=== PATIENT | female | born 1990 | race Caucasian/White ===

== ENCOUNTER 2016-04-27 14:26 | Inpatient (IN) | payer MEDICAID ==
[2016-04-27] MEDS ORDERED: ZOFRAN IV PRN ×2 (15:50→18:05)
[2016-04-27] MEDS ORDERED: MINERAL OIL PO PRN (15:50)
[2016-04-27] MEDS ORDERED: NARCAN 0.4 MG/1 ML IV PRN (15:50)
[2016-04-27] MEDS ORDERED: BRETHINE IVP PRN (15:50)
[2016-04-27] MEDS ORDERED: ePHEDrine SULFATE IV PRN (15:50)
[2016-04-27] MEDS ORDERED: BRETHINE SUB-Q PRN (15:50)
[2016-04-27] MEDS ORDERED: STADOL IV PRN (15:50)
[2016-04-27] MEDS ORDERED: PHENERGAN PO PRN ×2 (15:50→18:05)
--- NOTE | 2016-04-27 15:56 | History and Physical Report ---
History of Present Illness Date of examination: 04/27/16 Chief complaint: Labor History of present illness: Pt is a 25yo BF EDC 04/30/16; EGA 39 4/7 weeks presents to L&D complaining of RUC's q 3-4 mins. She denies ROM or bleeding. She received care at [facility] since 18 weeks and course has been unremarkable. records are available and GBS is Negative. Past History Past Medical History: no pertinent history Past Surgical History: no surgical history Family/Genetic History: none Social history: no significant social history, single - Obstetrical History Expected Date of Delivery: 04/30/16 Actual Gestation: 39 Week(s) 4 Day(s) : 2 Medications and Allergies Allergies Allergy/AdvReac Type Severity Reaction Status Date / Time No Known Allergies Allergy Unverified 02/24/14 19:40 Home Medications Medication Instructions Recorded Confirmed Last Taken Type Pnv with Ca,No.72/Iron/FA [Preplus 1 tab PO DAILY 02/25/14 02/25/14 02/23/14 History Ca-Fe 27 mg-FA 1 mg Tb] 1 Review of Systems All systems: negative - Vital Signs Vital signs: Vital Signs Pulse Pulse Ox 108 H 97 04/27/16 14:33 04/27/16 14:33 Temp Pulse Resp BP Pulse Ox 89 106/62 99 04/27/16 15:37 04/27/16 14:53 04/27/16 15:37 - Physical Exam Breasts: Positive: deferred Cardiovascular: Regular rate Lungs: Positive: Clear to auscultation Abdomen: Positive: normal appearance Genitourinary (Female): Positive: normal external genitalia Uterus: Positive: enlarged Extremities: Positive: normal - Obstetrical FHR: category 1 Uterine Contraction Monitor Mode: External Cervical Dilatation: 5 Cervical Effacement Percentage: 80 station: -2 Uterine Contraction Pattern: Regular Uterine Tone Measurement Phase: Contraction Uterine Contraction Intensity: Moderate Results Result Diagrams: 04/27/16 16:00 All other labs normal. Assessment and Plan - Patient Problems (1) Active labor at term Onset Date: 04/27/16 Current Visit: No Status: Acute Plan to address problem: A: IUP @ 39 4/7 weeks in labor P: Admit to L&D for expectant vaginal delivery
[2016-04-27] MEDS ORDERED: PITOCin/NS 20 UNIT/1000ML DRIP 20 UNIT/1,000 ML BAG IV SCH (16:00)
[2016-04-27] MEDS ORDERED: LACTATED RINGERS 1,000 ML IV SCH (16:00)
[2016-04-27] MEDS ORDERED: PITOCin/NS 30 UNIT/500ML 30 UNIT/500 ML BAG IV SCH ×2 (16:00)
[2016-04-27] MEDS: SUBLIMAZE IV PRN ×2 (16:22→16:24)
[2016-04-27 16:48] LABS: Hematocrit 34.5 % (30.3-42.9); Hemoglobin 11.3 gm/dl (10.1-14.3); Mean Corpuscular HGB Conc 33 % (30-34); Mean Corpuscular Hemoglobin 27 pg (28-32); Mean Corpuscular Volume 81 fl (79-97); Platelet Count 164 K/mm3 (140-440); Red Blood Count 4.25 M/mm3 (3.65-5.03); Red Cell Distribution Width 14.1 % (13.2-15.2); White Blood Count 11.3 K/mm3 (4.5-11.0)
[2016-04-27] MEDS ORDERED: XYLOCAINE 2% INFILTRATI ONE (17:24)
--- NOTE | 2016-04-27 17:42 | Procedure Note ---
OB Delivery Note - Delivery Date of Delivery: 04/27/16 Surgeon: DESIREE JURADO Estimated blood loss: 300cc - Vaginal Delivery presentation: vertex Delivery position: OP Intrapartum events: precipitous labor- <3hr Delivery induction: none Delivery augmentation: rupture of membranes Delivery monitor: external FHT, external uterine Route of delivery: Delivery placenta: spontaneous Delivery cord: 3 umbilical vessels Episiotomy: none Delivery laceration: 2nd degree (perineal) Delivery repair: vicryl - A at 1 minute: 8 at 5 minutes: 9 Gender: Female (3255gms)
[2016-04-27] MEDS ORDERED: LANSINOH TP PRN (18:05)
[2016-04-27] MEDS ORDERED: NORCO 5/325 PO PRN (18:05)
[2016-04-27] MEDS ORDERED: DERMOPLAST TP PRN (18:05)
[2016-04-27] MEDS ORDERED: MILK OF MAGNESIA PO PRN (18:05)
[2016-04-27] MEDS ORDERED: PHENERGAN PR PRN (18:05)
[2016-04-27] MEDS ORDERED: DULCOLAX PR PRN (18:05)
[2016-04-27] MEDS ORDERED: TYLENOL PO PRN (18:05)
[2016-04-27] MEDS ORDERED: BENADRYL PO PRN (18:05)
[2016-04-27] MEDS ORDERED: TUCKS PAD TP PRN (18:05)
[2016-04-27] MEDS ORDERED: PITOCin/NS 20 UNIT/1000ML DRIP 20 UNITS/1,000 ML BAG IV SCH (19:00)
[2016-04-27] MEDS ORDERED: SODIUM CHLORIDE FLUSH SYRINGE 10 ML IV NR (19:00)
[2016-04-27] MEDS: FEOSOL PO SCH (21:04)
[2016-04-27] MEDS: MOTRIN PO SCH (21:04)
[2016-04-27] MEDS: COLACE PO SCH (21:05)
[2016-04-28 05:34] LABS: Hematocrit 27.6 % (30.3-42.9); Hemoglobin 9.4 gm/dl (10.1-14.3)
[2016-04-28] MEDS ORDERED: BOOSTRIX IM ONE (06:00)
[2016-04-28] MEDS ORDERED: M-M-R II VACCINE SUB-Q ONE (06:00)
[2016-04-28] MEDS: MOTRIN PO SCH ×3 (06:36→18:46)
[2016-04-28] MEDS ORDERED: PRENATAL VITAMIN PO SCH (10:00)
[2016-04-28] MEDS: COLACE PO SCH ×2 (10:05→21:47)
[2016-04-28] MEDS: FEOSOL PO SCH ×2 (10:05→21:47)
--- NOTE | 2016-04-28 11:25 | Progress Note ---
Assessment and Plan - Patient Problems (1) Active labor at term Onset Date: 04/27/16 Current Visit: No Status: Resolved (2) Normal spontaneous vaginal delivery Onset Date: 04/28/16 Current Visit: No Status: Resolved Plan to address problem: A: S/P - PPD #1 Doing well Asymptomatic anemia P: May go home tomorrow Subjective - Subjective Date of service: 04/28/16 Principal diagnosis: s/p - PPD #1 Interval history: Pt is feeling well without complaints. Bleeding improved. Patient reports: appetite normal, voiding normally, pain well controlled, flatus , ambulating normally, no dizzy ambulation, no nauseated : doing well, nursing well Objective - Vital Signs Latest vital signs: Vital Signs Temp Pulse Pulse Resp BP BP Pulse Ox 04/28/16 04:20 98 F 76 18 120/65 04/28/16 00:40 98.6 F 70 16 116/60 04/27/16 22:07 98.6 F 86 20 107/55 04/27/16 17:39 79 109/64 04/27/16 16:19 98.9 F 18 04/27/16 15:37 89 99 04/27/16 15:35 34 L 84 04/27/16 14:53 69 106/62 04/27/16 14:33 108 H 97 Intake and Output 04/27/16 04/28/16 04/28/16 22:59 06:59 14:59 Intake Total 125 Output Total 1250 800 Balance -1125 -800 Intake: IV 125 PITOCin/NS 20 UNIT/1000ML 125 DRIP 20 unit In 1,000 ml @ 125 mls/hr IV DIRECT TERRY Rx#:[id number] Output: Urine 1250 800 Void 1250 800 Other: Total, Output Amount 700 400 # Voids Void 1 1 Weight 80.739 kg Estimated Blood Loss 300 - Exam Breasts: Present: deferred Cardiovascular: Present: Regular rate Lungs: Present: Clear to auscultation Abdomen: Present: normal appearance, soft Uterus: Present: normal, firm, fundal height below umbilicus Extremities: Present: normal - Labs Labs: Abnormal lab results 04/27/16 04/28/16 Range/Units 16:00 05:19 WBC 11.3 H (4.5-11.0) K/mm3 Hgb 9.4 L (10.1-14.3) gm/dl Hct 27.6 L D (30.3-42.9) % MCH 27 L (28-32) pg Laboratory Tests 04/27/16 04/27/16 04/28/16 16:00 16:00 05:19 WBC 11.3 H RBC 4.25 Hgb 11.3 9.4 L Hct 34.5 27.6 L D MCV 81 MCH 27 L MCHC 33 RDW 14.1 Plt Count 164 Blood Type O POSITIVE Antibody Screen Negative
--- NOTE | 2016-04-28 14:22 | Discharge Summary ---
Providers - Providers Date of Admission: 04/27/16 15:50 Date of discharge: 04/29/16 Attending physician: DESIREE JURADO Primary care physician: DESIREE JURADO Hospitalization Reason for admission: active labor, IUP at term Delivery: Episiotomy: none Laceration: 2nd degree Other procedures: none complications: none Discharge diagnosis: IUP at term delivered [place] baby: female Hospital course: Unremarkable. Condition at discharge: Good Disposition: DISCHARGED TO HOME OR SELFCARE - Discharge Diagnoses (1) Active labor at term Status: Resolved (2) Normal spontaneous vaginal delivery Status: Resolved Plan - Discharge Medications Prescriptions: HYDROcodone/APAP 5-325 [[place] 5/325] 1 each PO Q6HR PRN #20 tablet PRN Reason: Pain Ibuprofen [Motrin] 800 mg PO Q8HR PRN #30 tablet PRN Reason: Moder Pain Unrelieved By [place] Pnv with Ca,No.72/Iron,Carb/FA [ Plus Iron Tablet] 1 each PO DAILY #30 tablet - Provider Discharge Summary Activity: routine, no sex for 6 weeks, no heavy lifting 4 weeks, no strenuous exercise Diet: routine Instructions: routine Additional instructions: [] Smoking cessation referral if applicable(refer to patient education folder for contact #) [] Refer to [facility] Booklet Call your doctor immediately for: * Fever > 100.5 * Heavy vaginal bleeding ( >1 pad per hour) * Severe persistent headache * Shortness of breath * Reddened, hot, painful area to leg or breast * Drainage or odor from incision. * Keep incision clean and dry at all times and follow doctor's instructions regarding bathing/showering - Follow up plan Follow up: DESIREE JURADO MD [Primary Care Provider] - 6 Weeks
[2016-04-29] MEDS: MOTRIN PO SCH ×2 (05:23)
[2016-04-29 10:54] VITALS: BP 107/54
== END 2016-04-29 10:49 | disposition home or self-care (01) | DRG 775 ==
LOC: TRG 14:26 → LD 15:50 → OB 19:50
PROVIDERS: ADMIT Obstetrics & Gynecology; ATTEND Obstetrics & Gynecology
PROC: 10E0XZZ Delivery of Products of Conception, External Approach (ICD-10-PCS; principal; 2016-04-27)
PROC: 0KQM0ZZ Repair Perineum Muscle, Open Approach (ICD-10-PCS; 2016-04-27)
PROC: 3E0234Z Introduction of Serum, Toxoid and Vaccine into Muscle, Percutaneous Approach (ICD-10-PCS; 2016-04-28)
DX: O62.3 Precipitate labor (principal); O70.1 Second degree perineal laceration during delivery; Z3A.39 39 weeks gestation of pregnancy; Z37.0 Single live birth; Z23 Encounter for immunization; Z79.899 Other long term (current) drug therapy
CPT/HCPCS: 36415; 85014; 85018; 85027; 86850; 86900; 86901; 90471; 90715; A6250; J2590; J3010; J7120